=== PATIENT | female | born 1995 ===

== ENCOUNTER → 2021-12-28 08:03 | Outpatient (CLI) | payer OTHER, SELFPAY ==
--- NOTE | 2021-12-28 08:04 | DI.US.S_ITS ---
PROCEDURE: US OB LIMITED INDICATIONS: FOLLOW-UP OUT OF STATE ANATOMY SCAN OUTSIDE/PRIOR DATING DATA: Last menstrual period (LMP): Unknown. First dating scan (date and location): November 14, 2021. Estimated date of delivery (MABLE) from first dating scan: April 15, 2022. TECHNIQUE: Real-time scanning was performed of the fetus, with image documentation and biometric measurements. COMPARISON: Outside Facility, RG, US OB DETAILED ANATOMY, 11/14/2021, 9:40. FINDINGS: General: A single living intrauterine gestation is present. Presentation: Vertex. Placenta: Placental position is posterior , without previa. Amniotic fluid index: 13.5 cm, normal range is 5-24 cm. Single deepest vertical pocket is 4 cm. heart rate: 152 beats per minute. Maternal cervical canal: 3.1 cm long. Normal lower limit is 2.5 cm. biometrics: Biparietal diameter: 6 cm Head circumference: 23.2 cm Abdominal circumference: 20.1 cm Femur length: 4.7 cm Clinically estimated gestational age: 24 weeks, 4 days Composite gestational age from present scan: 25 weeks, 1 day Estimated weight and percentile: 774 g +/-115 g; 67 percent Other: Facial profile: Normal. Four-chamber /outflow tracts: Normal appearance Extremities: Normal appearance. IMPRESSION: Single intrauterine gestation as detailed above. We strive to produce accurate, complete, and clear reports of imaging services. To assist us in improving patient care, this report was composed using standard report templates and voice recognition software. Therefore, it may contain abnormal punctuation, insertions and/or omissions. Occasional wrong-word or sound-alike substitutions may occur. Though we review the report and make efforts to correct it, we do recommend that the report be read carefully in proper context to recognize any text inaccuracies. Dictated by: Deion Allen M.D. on 12/28/2021 at 8:55 Approved by: Deion Allen M.D. on 12/28/2021 at 8:58
== END ==
PROVIDERS: Referring Provider Family Medicine; Visit Provider Family Medicine
DX: Z36.2 Encounter for other antenatal screening follow-up (principal); Z3A.24 24 weeks gestation of pregnancy
CPT/HCPCS: 76815

== ENCOUNTER → 2022-01-19 14:46 | Outpatient (CLI) | payer OTHER, SELFPAY ==
[2022-01-19 17:26] LABS: Add Manual Diff / Slide Review NO; Basophils Absolute Auto 0 /uL (0-100); Basophils Percent Auto 0.2 % (0-2); Eosinophils Absolute Auto 300 /uL (0-450); Eosinophils Percent Auto 2.6 % (2-4); Hemoglobin 10.8 g/dL (12.0-16.0); Lymphocytes Absolute Auto 1000 /uL (1100-4500); Lymphocytes Percent Auto 9.7 % (25-40); Mean Corpuscular HGB Conc 33.8 % (30-36); Mean Corpuscular Hemoglobin 31.6 PG (26-34); Mean Corpuscular Volume 93.7 fL (80-100); Monocytes Absolute Auto 500 /uL (0-900); Monocytes Percent Auto 4.9 % (3-14); Neutrophils Absolute Auto 9000 /uL (1500-7000); Neutrophils Percent Auto 82.6 % (50-75); Platelet Count 265 X10^3/uL (150-400); Red Blood Cell Count 3.41 X10^6/uL (4.0-5.2); Red Cell Distribution Width 13.6 % (11.6-14.8); White Blood Cell Count 10.8 X10^3/uL (4.5-11.0)
[2022-01-19 17:50] LABS: GTT (PREG) 1 Hour PP 50gm Dose 153 mg/dL (76-139)
== END ==
PROVIDERS: Referring Provider Family Medicine; Visit Provider Family Medicine
DX: Z34.02 Encounter for supervision of normal first pregnancy, second trimester (principal); Z3A.27 27 weeks gestation of pregnancy
CPT/HCPCS: 36415; 82950; 85025

== ENCOUNTER → 2022-02-01 08:05 | Outpatient (CLI) | payer OTHER, SELFPAY ==
[2022-02-01 10:13] LABS: Glucose Fasting Gestational 84 mg/dL (76-95)
[2022-02-01 10:50] LABS: Glucose 1 Hour Gest 172 mg/dL (76-180)
[2022-02-01 11:54] LABS: Glucose Tol Interp,Gestational INTERPRETATION
[2022-02-01 12:23] LABS: Glucose 2 Hour Gest 156 mg/dL (76-155)
[2022-02-01 13:01] LABS: Glucose 3 Hour Gest 110 mg/dL (76-140)
== END ==
PROVIDERS: Referring Provider Family Medicine; Visit Provider Family Medicine
DX: Z34.90 Encounter for supervision of normal pregnancy, unspecified, unspecified trimester (principal)
CPT/HCPCS: 36415; 82951; 82952

== ENCOUNTER → 2022-03-23 15:08 | Outpatient (CLI) | payer OTHER, SELFPAY ==
[2022-03-24 15:30] LABS: Strep Grp B PCR NEG for Grp B Strep
== END ==
PROVIDERS: Visit Provider Family Medicine
DX: Z34.93 Encounter for supervision of normal pregnancy, unspecified, third trimester (principal); Z3A.36 36 weeks gestation of pregnancy
CPT/HCPCS: 87653

== ENCOUNTER 2022-03-28 00:31 | Observation (INO) | payer OTHER, SELFPAY ==
--- NOTE | 2022-03-28 02:25 | PM.OBTRLD ---
Visit Information Visit Information Date of evaluation: 03/28/22 Primary OB Provider: Imani Gerardo On-call OB Provider: Sangeeta Iverson Reason for Evaluation: Yes rule out labor Comments/Additional reasons for admission: 27YO @ [id number] presents for evaluation of vibrations in her vagina Q5 minutes. Vital Signs Vital Signs: BP 129/63, HR 71bpm, T 98.2F Temporal PFSH Medical History Anxiety Surgical History Chiari malformation Nasal polyp Family History Mother Diabetes mellitus Father Hypertension Other Chiari malformation Social History marital status: household members: spouse lives independently: Yes housing: house pets and animals: Yes (dog) education level: college occupational status: unemployed seatbelt use: always water heater temp set < 120 deg: Yes working smoke detector in home: Yes fire extinguisher in home: Yes (Unsure) carbon monox detector in home: Yes firearms in home: No do you feel safe at home: Yes Smoking Status: Never smoker second hand exposure: No alcohol intake: former substance use type: does not use during the past year weight has: remained stable well-balanced diet: daily or most days daily servings fruits/ve-4 caffeine: Yes Type(s) of exercise: walking and occasional exercise Review of Systems Review of Systems ROS: Yes All systems reviewed with the patient and are negative except as otherwise documented Exam Vital Signs (past 8 hours): see above Evaluation Evaluation Baseline heart rate: 125 Variability: Moderate (11-25) monitor accelerations: Present Monitor Decelerations: Absent Contraction Frequency (minutes): 6 Uterine Contraction Intensity: Mild Category of Tracing: Reactive Cervical dilation (cm): 3 Cervical effacement (%): 90 station: -1 Comments: Per RN, CE unchanged after 1 hour Diagnosis, Plan/Disposition Final Diagnosis (1) False labor after 37 completed weeks of gestation: Status: Acute Plan/Disposition Plan: Discharge to home with routine labor precautions. RN provided additional early labor education. Follow-up with as previously scheduled. OB Disposition: home
== END 2022-03-28 02:36 | disposition home or self-care (01) ==
LOC: LABOR 00:33
PROVIDERS: Admitting Provider Nurse Practitioner Obstetrics & Gynecology; PCP Physician Assistant; Referring Provider Nurse Practitioner Obstetrics & Gynecology; Visit Provider Nurse Practitioner Obstetrics & Gynecology
DX: O47.1 False labor at or after 37 completed weeks of gestation (principal); Z3A.37 37 weeks gestation of pregnancy
CPT/HCPCS: 59025; G0378; G0379

== ENCOUNTER 2022-03-28 13:15 | Outpatient (CLI) | payer OTHER, SELFPAY ==
--- NOTE | 2022-03-28 14:23 | PM.OBTRLD ---
Visit Information Visit Information Date of evaluation: 03/28/22 Primary OB Provider: Imani Gerardo Reason for Evaluation: Yes rule out labor Comments/Additional reasons for admission: 27yo at 37w0d here for contractions. Pt reports having them increase in intensity throughout the day. No bleeding or LOF. She is feeling her baby move regularly. [facility] Medical History Anxiety Surgical History Chiari malformation Nasal polyp Family History Mother Diabetes mellitus Father Hypertension Other Chiari malformation Social History marital status: household members: spouse lives independently: Yes housing: house pets and animals: Yes (dog) education level: college occupational status: unemployed seatbelt use: always water heater temp set < 120 deg: Yes working smoke detector in home: Yes fire extinguisher in home: Yes (Unsure) carbon monox detector in home: Yes firearms in home: No do you feel safe at home: Yes Smoking Status: Never smoker second hand exposure: No alcohol intake: former substance use type: does not use during the past year weight has: remained stable well-balanced diet: daily or most days daily servings fruits/ve-4 caffeine: Yes Type(s) of exercise: walking and occasional exercise Evaluation Evaluation Baseline heart rate: 130 Variability: Moderate (11-25) monitor accelerations: Present Monitor Decelerations: Absent Contraction Frequency (minutes): 7 Uterine Contraction Intensity: Mild Cervical dilation (cm): 3 Cervical effacement (%): 80 station: -1 Diagnosis, Plan/Disposition Final Diagnosis (1) Prolonged latent phase of labor: Status: Acute Plan/Disposition Plan: Pt 37w0d here with contractions. No cervical change from last night. FHT reassuring. Pt without any sleep overnight. Morphine/Benadryl given to allow for rest. Stable for d/c home. OB Disposition: home
== END 2022-03-28 14:40 | disposition home or self-care (01) ==
LOC: LABOR 13:41 → OB 03-29 13:43
PROVIDERS: Referring Provider Family Medicine; Visit Provider Family Medicine
DX: O63.0 Prolonged first stage (of labor) (principal); Z3A.37 37 weeks gestation of pregnancy; O47.1 False labor at or after 37 completed weeks of gestation
CPT/HCPCS: 59025; G0378; G0379

== ENCOUNTER 2022-04-08 06:29 | Inpatient (IN) | payer OTHER, SELFPAY ==
[2022-04-08 07:31] LABS: Add Manual Diff / Slide Review NO; Basophils Absolute Auto 100 /uL (0-100); Basophils Percent Auto 0.8 % (0-2); Eosinophils Absolute Auto 100 /uL (0-450); Eosinophils Percent Auto 1.2 % (2-4); Hematocrit 38.1 % (36-46); Hemoglobin 13.1 g/dL (12.0-16.0); Lymphocytes Absolute Auto 1200 /uL (1100-4500); Mean Corpuscular HGB Conc 34.5 % (30-36); Mean Corpuscular Hemoglobin 31.9 PG (26-34); Mean Corpuscular Volume 92.6 fL (80-100); Monocytes Absolute Auto 600 /uL (0-900); Monocytes Percent Auto 6.2 % (3-14); Neutrophils Absolute Auto 8300 /uL (1500-7000); Neutrophils Percent Auto 79.8 % (50-75); Platelet Count 224 X10^3/uL (150-400); Red Blood Cell Count 4.11 X10^6/uL (4.0-5.2); Red Cell Distribution Width 14.6 % (11.6-14.8); White Blood Cell Count 10.4 X10^3/uL (4.5-11.0)
--- NOTE | 2022-04-08 07:34 | P.HPOB_ITS ---
OB HPI Date/Time Date of admission: 04/08/22 Date Patient Seen: 04/08/22 Time Patient Seen: 07:30 History of Present Condition Chief complaint: Labor MABLE Calculator Estimated Delivery Date Method Current WG Current Estimate 04/18/22 LMP (Certain) 38w 4d : 2 Para: 0 Narrative: 27-year-old at 38 weeks and 4 days gestation who presents in active labor. Contractions began at 5:00 a.m. this morning. Patient denies leaking or bleeding and reports good movement. She did have some very light bleeding yesterday along with contractions. She has a history of Chiari malformation requiring surgical correction as a child. No concerns from Neurosurgery regarding laboring. 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 care: good care, initiated at week # (8), number of visits (13) and pounds weight gain (34) Dating criteria OB: LMP confirmed by 1st trimester US Ultrasounds: normal mid trimester US Obstetrical complications: none Medical complications OB: none Preadmission Labs Last OB Lab Results: Blood Type Pending 04/08/22 07:20 04/08/22 Antibody Screen Pending 04/08/22 07:20 04/08/22 Hematocrit 38.1 % (36-46) 04/08/22 07:20 04/08/22 Hemoglobin 13.1 g/dL (12.0-16.0) 04/08/22 07:20 04/08/22 Glucose 1 Hour 153 mg/dL (76-139) H 01/19/22 16:39 01/19/22 Group B Streptococcus (PCR) Neg for grp b strep 03/23/22 15:08 03/23/22 -: Chlamydia screen: negative and Gonorrhea screen: negative Genetic Screens: Cell-free DNA: Normal, Alpha-fetoprotein: Normal and Sequential screen: Normal Prior (ies) Past Pregnancies Del. Date GA/Weeks Labor Lgth Wt Sex Route Outcome Anesthesia Place Delv Breastfeed Preg Comp Name 02/13/12 elective Delivery Date: 02/13/12 Last Updated by: Trinidad Sprague R.N. Medical Evaluation Evaluation Baseline heart rate: 120 Variability: Moderate (11-25) monitor accelerations: Present Monitor Decelerations: Absent Contraction Frequency (minutes): 4 Status: Category l Dilation (cm): 8 Effacement (%): 95 station: 0 PFSH Medical History Anxiety Surgical History Chiari malformation Nasal polyp Family History Mother Diabetes mellitus Father Hypertension Other Chiari malformation Social History marital status: household members: spouse lives independently: Yes housing: house pets and animals: Yes (dog) education level: college occupational status: unemployed seatbelt use: always water heater temp set < 120 deg: Yes working smoke detector in home: Yes fire extinguisher in home: Yes (Unsure) carbon monox detector in home: Yes firearms in home: No do you feel safe at home: Yes Smoking Status: Never smoker second hand exposure: No alcohol intake: former substance use type: does not use during the past year weight has: remained stable well-balanced diet: daily or most days daily servings fruits/ve-4 caffeine: Yes Type(s) of exercise: walking and occasional exercise Meds Home Medications and Allergies Home Medications Medication Instructions Recorded Confirmed Type ferrous sulfate 325 mg (65 mg 325 mg PO DAILY 12/18/21 04/06/22 History iron) tablet fluticasone propionate 50 1 spray INTRANASAL DAILY 12/18/21 04/06/22 History mcg/actuation nasal spray,suspension prenat.vits,joseluis,[id number] 1 tab PO DAILY 12/18/21 04/06/22 History valacyclovir 500 mg tablet 500 mg PO BID #60 tab 03/23/22 04/06/22 Rx Allergies Allergy/AdvReac Type Severity Reaction Status Date / Time No Known Drug Allergies Allergy Unverified 04/06/22 14:36 Review of Systems Review of Systems ROS: Yes All systems reviewed with the patient and are negative except as otherwise documented OB Exam Narrative Exam Narrative: Temperature 98.6? blood pressure 140/87 heart rate 69 respirations 18 HENMT Head: normal to inspection Mouth: oral mucosae normal Eyes General: appearance normal, both eyes and all related structures Resp Effort & Inspection: normal respiratory effort Auscultation: clear to auscultation bilaterally Cardio Rate: regular rate Rhythm: regular rhythm Extremities Lower extremity: Yes normal to inspection Presentation: vertex Estimated Weight (lbs): 7 Objective Labs Result Diagrams: 04/08/22 07:20 Labs: Laboratory Results - last 24 hr 04/08/22 07:20 WBC 10.4 RBC 4.11 Hgb 13.1 Hct 38.1 MCV 92.6 MCH 31.9 MCHC 34.5 RDW 14.6 Plt Count 224 Neut % (Auto) 79.8 H Lymph % (Auto) 12.0 L [place] % (Auto) 6.2 Eos % (Auto) 1.2 L Baso % (Auto) 0.8 Neut # (Auto) 8300 H Lymph # (Auto) 1200 [place] # (Auto) 600 Eos # (Auto) 100 Baso # (Auto) 100 Assessment and Plan Assessment and Plan Assessment and Plan narrative: 27-year-old at 38 weeks and 4 days gestation in active labor. complicated by history of Chiari malformation status post correction as a child as well as history of HSV on valacyclovir since 36 weeks. Per Neurosurgery, no contraindications to labor or Epidural. GBS negative. Admit for labor Patient is requesting an epidural now Anticipate
[2022-04-08 07:47] LABS: COVID19 -Nasal RAPID Negative (Negative)
[2022-04-08] MEDS: LACTATED RINGERS 1,000 ML 1000 ML IV (08:00)
--- NOTE | 2022-04-08 08:59 | PM.AN.REGBLK ---
Regional Block Pre-procedure Procedure: Continuous Lumbar Epidural for L&D Attending OB provider: Imani Gerardo PMH/ROS narrative: G1 term uncomplicated gestation in active labor, intact, desires epidural. PSH/Anesthesia history narrative: Resection of AC malformation ten years ago. Becuase of this, she declines offer of CSE now. Exam narrative: Scoliosis of lumbar back. ASA Class: II Labs: Hct 38.1 % (36-46) 04/08/22 07:20 Plt Count 224 X10^3/uL (150-400) 04/08/22 07:20 Medications: Current Medications Generic Name Dose Route Start Last Admin Trade Name Freq PRN Reason Stop Dose Admin Carboprost Tromethamine 250 mcg 04/08/22 07:01 Carboprost 250 Mcg/Ml Ampul IM Q90M PRN Bleeding Diphenhydramine HCl 25 mg 04/08/22 07:57 Diphenhydramine 50 Mg/Ml Vial IV Q10M PRN Pruritis Lactated Ringer's 1,000 mls @ 100 mls/hr 04/08/22 07:15 Lactated Ringers IV CONT LORELEI Oxytocin/Lactated Ringer's 30 unit in 500 mls @ 200 mls/hr 04/08/22 07:01 Oxytocin Premix IV CONT PRN Bleeding Protocol Tranexamic Acid 1,000 mg/ 100 mls @ 200 mls/hr 04/08/22 07:01 Sodium Chloride IV NOW PRN Bleeding FENT 2MCG/ML BUPIV 0.125% EPI 200 mcg in 100 mls @ 6 mls/hr 04/08/22 08:00 Fentanyl/Bupiv/Ns 2mcg/Ml - 0.125% EPIDURAL CONT LORELEI Methylergonovine Maleate 0.2 mg 04/08/22 07:01 Methylergonovine 0.2 Mg Tablet PO Q6HR PRN Heavy Bleeding Methylergonovine Maleate 0.2 mg 04/08/22 07:01 Methylergonovine 0.2 Mg/Ml Vial IM NOW PRN Bleeding Misoprostol 800 mcg 04/08/22 07:01 Misoprostol 200 Mcg Tablet HI NOW PRN Bleeding Misoprostol 1,000 mcg 04/08/22 07:01 Misoprostol 200 Mcg Tablet HI NOW PRN Bleeding Misoprostol 400 mcg 04/08/22 07:01 Misoprostol 200 Mcg Tablet SL NOW PRN Bleeding Nalbuphine HCl 2.5 mg 04/08/22 07:57 Nalbuphine 20 Mg/Ml Ampul IV Q10M PRN Pruritis Oxytocin 10 unit 04/08/22 07:01 Oxytocin 10 Unit/Ml Vial IM NOW PRN Bleeding Allergies: Allergies Allergy/AdvReac Type Severity Reaction Status Date / Time No Known Drug Allergies Allergy Unverified 04/06/22 14:36 Procedure Insertion date: 04/08/22 Insertion time: 08:23 Prep/Local: betadine x3 and 1% lidocaine Interspace: L 3-4 midline Patient position: sitting Needle: 17 gauge Tuohy Loss of resistance with: saline MARYSOL at (cm): 5 Catheter placed at SKIN (cm): 11 Insertion: No CSF, No Blood, No Paresthesia with insertion, No Paresthesia with injection and No Test dose reaction Initial Medications TEST DOSE time: : BOLUS DOSE time: 08:36 BOLUS DOSE (mL): 2 BOLUS DOSE med: other (Fentanyl 100 mcg) Infusion INFUSION: 0.125% bupivacaine and with fentanyl 2 mcg/mL Initial rate (mL/hr): 8 Subsequent interventions: Fentanyl 100 mcg per epidural at 8:36 Block L>R, so at 10:23, epidural cath pulled back to 10 cm and bolus of 5 ml 1.5% lido with epi plus 100 mcg fentanyl given to good effect Comfortable delivery at 16:18 Post-procedure Anesthesia time START: 08:07 Anesthesia time END: 16:18 Post-procedure Anesthesia Assessment: Yes CV function: HR/BP stable, Yes Resp function: RR/sat/airway adequate, Yes Post-op hydration adequate, Yes Pain control adequate, Yes Nausea & vomiting absent, Yes Temperature > 36 C and Yes Mental status appropriate
--- NOTE | 2022-04-08 09:55 | P.PNOB_ITS ---
Date/Time Date Patient Seen: 04/08/22 Time Patient Seen: 09:00 Pain Control Pain control: epidural Pelvic Exam Dilation (cm): 8 Effacement (%): 100 station: 0 Amniotic membrane status: Ruptured (AROM clear fluid) Contractions Monitor mode: External Contraction frequency (min): 4 Status status: Category l Heart Rate Baseline: 120 Monitor Accelerations: Present Monitor Decelerations: Absent Monitor Variability: Moderate Assessment and Plan Assessment: active labor Plan: continuous present management Comments: 27-year-old at 38 weeks and 4 days gestation in active labor, now com fortable with epidural. She has not had cervical change since admission so artificial rupture membranes performed for augmentation with clear fluid. Will begin peanut ball to encourage descent of the head.
[2022-04-08] MEDS: LACTATED RINGERS 1,000 ML 100 ML IV (10:23)
--- NOTE | 2022-04-08 16:31 | PM.OBPRVD ---
Labor & Delivery Delivery date: 04/08/22 Intrapartal Events: Prolonged 2nd Stage > 2.5 hours Cervical ripening method: none Induction method: none Delivery augmentation: rupture of membranes Delivery monitor: external FHT and external uterine Route of delivery: Episiotomy description: None L&D Laceration Description: None Quantitative Blood Loss: 50 Anesthesia Type: Epidural Complications: None Narrative: PROCEDURE: at 38w4d presented in active labor and was admitted to Labor and Delivery. The patient progressed through the 1st stage over 8 hours. AROM was performed with production of clear fluid. Pain was controlled with an epidural. The patient progressed through the 2nd stage over 3 hours and delivered a viable female infant with APGARs 8/9 at 16:18 via without complications. The perineum and vagina were inspected with no lacerations. PREPROCEDURE DIAGNOSIS: Intrauterine at 38w4d GBS negative RH positive POSTPROCEDURE DIAGNOSIS: Intrauterine at 38w4d, delivered Same as preprocedure Baby 1: gender: Female Presentation: vertex Position: Left Occiput Anterior Placenta delivery description: Spontaneous Cord Vessel Description: 3 Vessels score (1 min): 8 score (5 min): 9 weight: 7 lb 5.286 oz Plan for aftercare: Routine care
[2022-04-08] MEDS: IBUPROFEN 600 MG TABLET PO (19:37)
[2022-04-09] MEDS: IBUPROFEN 600 MG TABLET PO (05:37)
--- NOTE | 2022-04-09 09:26 | P.DS_ITS ---
Discharge Providers Provider Date of admission: 04/08/22 06:29 Discharge Date: 04/09/22 Primary care physician: Vipin Claire PA-C Consults: 04/09/22 16:30 Consult to Senior Mechanical Project Engineer Routine Comment: Discharge provider: Mona Mueller DO Summary Hospital Course Date Patient Seen: 04/09/22 Time Patient Seen: 09:27 Diagnoses: Spontaneous vaginal delivery 38 weeks of Hospital Course: Patient is a 27-year-old G2 now P1 after uncomplicated spontaneous vaginal delivery at 38 weeks and 4 days gestation. She presented in active labor and received an epidural. After 3 hours of pushing she delivered a vigorous female infant. There were no lacerations. course has been uncomplicated. She is ambulating, voiding and passing flatus. Vaginal bleeding is light. Pain controlled with ibuprofen. is going well without concerns in the . Advised patient to call for fever, severe pain or bleeding through more than a pad an hour. Follow-up in clinic in 6 weeks. Peripartum Data Delivery Method: Natural Vaginal Laceration Description: None complications: none [place] 1: Gender: Female Disposition of : home Status at Discharge Cognitive/behavioral status at discharge: at baseline, oriented Functional status at discharge: independent ambulation Overall status at discharge: patient is progressing back to baseline Time Spent with Patient Time attestation: Total time spent providing and/or coordinating discharge services: Time spent: Less than 30 minutes Objective Labs Result Diagrams: 04/08/22 07:20 Exam Vital Signs (past 8 hours): Temperature 98.2? blood pressure 130/70 heart rate 70 respirations 16 Narrative Exam Narrative: General: Awake and alert, no acute distress. HEENT: NCAT, EOMI, moist oral mucosa CV: Regular rate and rhythm, no murmurs, rubs or gallops Lungs: CTAB, no wheezes, rales, or rhonchi Abdomen: Soft, nontender; bowel tones active; uterus firm 1 cm below umbilicus Extremities: Warm, no edema Discharge Plan Discharge Plan Patient Disposition: Home Discharge orders & Medications Prescriptions: New docusate sodium 100 mg Capsule 100 mg PO DAILY Qty: 30 0RF ibuprofen 600 mg Tablet 600 mg PO Q6HR PRN (Reason: Pain, Mild (1-3)) Qty: 30 0RF Continued valacyclovir 500 mg tablet 500 mg PO BID Qty: 60 1RF prenat.vits,joseluis,[id number] Tablet 1 tab PO DAILY 0RF ferrous sulfate 325 mg (65 mg iron) tablet 325 mg PO DAILY 0RF fluticasone propionate 50 mcg/actuation spray,suspension 1 spray intranasal DAILY 0RF Rx Instructions: administer into each nostril Follow up/Referrals: Vipin Claire PA-C [Primary Care Provider] - Imani Gerardo MD [Physician] - 6 Weeks Diet/Activity/Treatments Diet: Diet as Tolerated Skin/Wound/Dressing Care Report to your healthcare provider any signs of infection, such as:: chills, fever, night sweats, increased pain, unusual drainage and unusual redness Visit Report/Discharge Packet Visit Report Forms: Patient Portal/API Discharge Data Primary Care Provider: Vipin Claire
== END 2022-04-09 13:30 | disposition home or self-care (01) | DRG 807 ==
PROVIDERS: Family Medicine; Admitting Provider Family Medicine; PCP Physician Assistant; Referring Provider Family Medicine; Visit Provider Family Medicine
DX: O98.52 Other viral diseases complicating childbirth (principal); Z37.0 Single live birth; B00.9 Herpesviral infection, unspecified; O63.1 Prolonged second stage (of labor); Z3A.38 38 weeks gestation of pregnancy; Z20.822 Contact with and (suspected) exposure to COVID-19
CPT/HCPCS: 01967; 36415; 59050; 59410; 85025; 86850; 86900; 86901; 87635; C9803; G0379; J3010

== ENCOUNTER → 2022-11-13 10:59 | Outpatient (CLI) | payer OTHER, SELFPAY ==
[2022-11-13 11:53] LABS: COVID19 -Nasal RAPID POSITIVE (Negative)
== END ==
PROVIDERS: PCP Physician Assistant; Visit Provider Surgery
DX: U07.1 COVID-19 (principal)
CPT/HCPCS: 87635; C9803

== ENCOUNTER 2023-12-01 19:43 | Emergency (ER) | payer OTHER, SELFPAY ==
[2023-12-01 19:46] VITALS: BP 136/73; PULSE 65; RESP 16; TEMP 37.4; O2SAT 99; BMI 24.9
--- NOTE | 2023-12-01 19:55 | ED_ITS ---
HPI - Dizziness General Chief Complaint: Weakness Stated Complaint: Dizzy, Feeling ill, chills, sweats Time Seen by Provider: 12/01/23 19:48 Source: patient Mode of arrival: Ambulatory Limitations: no limitations History of Present Illness HPI Narrative: 28-year-old female proximally your with history of Chiari malformation with surgery approximately she 15 years ago. Patient states her last check was about 2 years ago. She has not had any issues revisions. Patient states she has felt off kind of difficulty with focus, insomnia, she has felt a little dizzy but she did describes no headaches, denies fevers but has been sweaty, no nasal congestion or cold cough symptoms. Denies chest pain or pressure, no shortness of breath. She denies any nausea or vomiting. She states she has had a decreased appetite. States no diarrhea or constipation. No abdominal pain. Denies any dysuria, urgency or frequency. No new numbness, tingling weakness no difficulty with gait or balance. She did notice that she had some bruising on the backs of her thighs which is atypical. She sits on a chair at home for work and seemed to have developed some bruising secondary to that but states that is weird. She states the bruising has gone away. She states no daily medications, no current supplements. She states she has had polyps removed from her sinuses as well as her Chiari malformation surgery. Did not require any revisions at any point she did not have any complications. No tobacco, rare alcohol, no recreational drugs. She is accompanied by her . She notes that when friend told her she might have parasites, she sometimes he would sushi but only here in the [place] words flash frozen, no other meats, she has not had any long distance travel or other high-risk factors. Related Data Home Medications Medication Instructions Recorded Confirmed ferrous sulfate 325 mg (65 mg 325 mg PO DAILY 12/18/21 11/09/22 iron) tablet fluticasone propionate 50 1 spray intranasal DAILY 12/18/21 11/09/22 mcg/actuation nasal spray,suspension prenat.vits,joseluis,[id number] 1 tab PO DAILY 12/18/21 11/09/22 Previous Rx's Medication Instructions Recorded valacyclovir 500 mg tablet 500 mg PO BID #60 tabs 03/23/22 docusate sodium 100 mg capsule 100 mg PO DAILY #30 caps 04/09/22 ibuprofen 600 mg tablet 600 mg PO Q6HR PRN Pain, Mild 04/09/22 (1-3) #30 tabs Allergies Allergy/AdvReac Type Severity Reaction Status Date / Time No Known Drug Allergies Allergy Unverified 05/17/22 15:09 Review of Systems Review of Systems ROS Unobtainable: All systems reviewed & are unremarkable except as noted in HPI and below Patient History Medical History COVID-19 virus infection (11/13/22) Anxiety Surgical History Nasal polyp Chiari malformation Family History Mother Diabetes mellitus Father Hypertension Other Chiari malformation Social History marital status: household members: spouse and children lives independently: Yes housing: house pets and animals: Yes (dog) education level: college occupational status: unemployed seatbelt use: always water heater temp set < 120 deg: Yes working smoke detector in home: Yes fire extinguisher in home: Yes (Unsure) carbon monox detector in home: Yes firearms in home: No do you feel safe at home: Yes Smoking Status: Never smoker second hand exposure: No alcohol intake: former substance use type: does not use during the past year weight has: remained stable well-balanced diet: daily or most days daily servings fruits/ve-4 caffeine: Yes Type(s) of exercise: walking and occasional exercise Smoking Status: Never smoker alcohol intake frequency: holidays/special occasions only Substance Use Type: does not use Exam Narrative Exam Narrative: GEN: well nourished, well appearing female, alert and oriented x 3, patient appears to be in mild distress. HEENT: Atraumatic, pupils are equal round reactive to light, extraocular movements are intact, nares are clear, TMs are clear with no fluid, there is no conjunctival pallor. Throat is clear without any exudates, erythema, tonsillar enlargement or uvular deviation HEART: Regular rate and rhythm without murmur, clicks, rubs. Pulses are equal in upper and lower extremities LUNGS:Lungs clear to auscultation, no wheezes, rales, crackles, chest moves symmetrically ABD:bowel sounds normal, soft, non-tender, no guarding, rebound, rigidity, no masses noted, no hepatosplenomegaly :No CVA tenderness MSCL: Non-tender, no muscle atrophy, muscles strength 5/5 upper and lower extremities, full range of motion, normal gait NEURO:CN 2-12 intact, sensation normal, reflexes 2/4 upper and lower extremities. finger nose finger test normal, heel coto test normal, normal speech. SKIN: No rash, erythema or ecchymosis. Initial Vital Signs Initial Vital Signs: Vital Signs Temperature 99.3 F 12/01/23 19:46 Pulse Rate 65 12/01/23 19:46 Respiratory Rate 16 12/01/23 19:46 Blood Pressure 136/73 12/01/23 19:46 Pulse Oximetry 99 12/01/23 19:46 Oxygen Delivery Method Room Air 12/01/23 19:46 Course Orders Ordered: ED Orders 12/01/23 20:20 Covid-19 + FLU A/B + RSV - PCR Stat 12/01/23 20:21 Urine Culture Stat Urine Microscopic Stat 12/01/23 20:28 CBC Auto Diff [Complete Blood Count AUTO DIFF] Stat CMP [Comprehensive Metabolic Panel] Stat Lipase Stat 12/01/23 21:23 Arterial Blood Gas Stat Vital Signs Vital signs: Vital Signs - 8 hr 12/01/23 19:46 12/01/23 21:17 Temperature 99.3 F 98.9 F Pulse Rate 65 61 Respiratory Rate 16 16 Blood Pressure 136/73 125/67 Pulse Oximetry 99 100 Oxygen Delivery Method Room Air Room Air MDM - Dizziness Lab Data 12/01/23 20:28 12/01/23 20:28 Labs: Lab Results 12/01/23 12/01/23 12/01/23 Range/Units 20:20 20:21 20:28 WBC 11.8 H (4.5-11.0) X10^3/uL RBC 4.02 (4.0-5.2) X10^6/uL Hgb 12.5 (12.0-16.0) g/dL Hct 37.4 (36-46) % MCV 93.1 (80-100) fL MCH 31.2 (26-34) PG MCHC 33.5 (30-36) % RDW 12.5 (11.6-14.8) % Plt Count 277 (150-400) X10^3/uL Neut % (Auto) 64.7 (50-75) % Lymph % (Auto) 24.7 L (25-40) % [place] % (Auto) 5.8 (3-14) % Eos % (Auto) 4.3 H (2-4) % Baso % (Auto) 0.5 (0-2) % Neut # (Auto) 7600 H (3458-7014) /uL Lymph # (Auto) 2900 (7077-6384) /uL [place] # (Auto) 700 (0-900) /uL Eos # (Auto) 500 H (0-450) /uL Baso # (Auto) 100 (0-100) /uL ABG Sample Site ABG pH (7.35-7.45) ABG pCO2 (35-45) mmHg ABG pO2 (80-100) mmHg ABG HCO3 (23-27) mmol/L ABG Total CO2 (23-27) mmol/L ABG O2 Saturation (95-100) % ABG Base Excess (-2-3) mmol/L FiO2 Sodium 137 (137-145) mmol/L Potassium 4.0 (3.4-5.1) mmol/L Chloride 101 (98-107) mmol/L Carbon Dioxide 25 (22-32) mmol/L BUN 15 (7-17) mg/dL Creatinine 0.72 (0.52-1.04) mg/dL Estimated GFR > 60 (>60) mL/min BUN/Creatinine Ratio 20.8 (6-22) Glucose 91 (70-100) mg/dL Calcium 9.9 (8.4-10.2) mg/dL Total Bilirubin 0.4 (0.2-1.3) mg/dL AST 26 (14-36) IU/L ALT 15 (<35) IU/L Alkaline Phosphatase 75 (38-126) U/L Total Protein 8.2 (6.3-8.2) g/dL Albumin 4.4 (3.5-5.0) g/dL Globulin 3.8 (1.7-4.1) g/dL Albumin/Globulin Ratio 1.2 (1.0-2.8) Lipase 104 (23-300) U/L Urine RBC 5-10/hpf H (0-5/HPF) Urine WBC 1-5/hpf (0-5/HPF) Ur Squamous Epith Cells 5-10 /hpf H (0-5/HPF) Urine Bacteria Moderate (10-30) H (None) Hyaline Casts 0-1/lpf (None) Urine Mucus 2+ H (Negative) Ur Culture Indicated? Cult not indicated Vol Urine Centrifuged 10ml (spun) SARS-CoV-2 (PCR) Negative (Negative) Influenza A (RT-PCR) Flu a negative (NEGATIVE) Influenza B (RT-PCR) Flu b negative (NEGATIVE) RSV (PCR) Negative (Negative) 12/01/23 Range/Units 21:23 WBC (4.5-11.0) X10^3/uL RBC (4.0-5.2) X10^6/uL Hgb (12.0-16.0) g/dL Hct (36-46) % MCV (80-100) fL MCH (26-34) PG MCHC (30-36) % RDW (11.6-14.8) % Plt Count (150-400) X10^3/uL Neut % (Auto) (50-75) % Lymph % (Auto) (25-40) % [place] % (Auto) (3-14) % Eos % (Auto) (2-4) % Baso % (Auto) (0-2) % Neut # (Auto) (4939-2872) /uL Lymph # (Auto) (6581-3209) /uL [place] # (Auto) (0-900) /uL Eos # (Auto) (0-450) /uL Baso # (Auto) (0-100) /uL ABG Sample Site Right radial ABG pH 7.47 H (7.35-7.45) ABG pCO2 42.3 (35-45) mmHg ABG pO2 76 L (80-100) mmHg ABG HCO3 31 H (23-27) mmol/L ABG Total CO2 32 H (23-27) mmol/L ABG O2 Saturation 96 (95-100) % ABG Base Excess 7.0 H (-2-3) mmol/L FiO2 50 Sodium (137-145) mmol/L Potassium (3.4-5.1) mmol/L Chloride (98-107) mmol/L Carbon Dioxide (22-32) mmol/L BUN (7-17) mg/dL Creatinine (0.52-1.04) mg/dL Estimated GFR (>60) mL/min BUN/Creatinine Ratio (6-22) Glucose (70-100) mg/dL Calcium (8.4-10.2) mg/dL Total Bilirubin (0.2-1.3) mg/dL AST (14-36) IU/L ALT (<35) IU/L Alkaline Phosphatase (38-126) U/L Total Protein (6.3-8.2) g/dL Albumin (3.5-5.0) g/dL Globulin (1.7-4.1) g/dL Albumin/Globulin Ratio (1.0-2.8) Lipase (23-300) U/L Urine RBC (0-5/HPF) Urine WBC (0-5/HPF) Ur Squamous Epith Cells (0-5/HPF) Urine Bacteria (None) Hyaline Casts (None) Urine Mucus (Negative) Ur Culture Indicated? Vol Urine Centrifuged SARS-CoV-2 (PCR) (Negative) Influenza A (RT-PCR) (NEGATIVE) Influenza B (RT-PCR) (NEGATIVE) RSV (PCR) (Negative) Point of Care Testing Test Results Negative Urine Dip Bedside Urine Glucose Negative Bedside Urine Bilirubin - Negative Bedside Urine Ketone - Negative Urine Specific [place] 1.030 Bedside Urine Occult Blood +++ Bedside Urine pH 6.0 Bedside Urine Protein +/- 15 Bedside Urine Urobilinogen - Negative Bedside Urine Nitrite - Negative Bedside Urine Leukocytes - Negative Esterase MDM Narrative Medical decision making narrative: 28-year-old female with vague constellation of symptoms could have had recent upper respiratory type infection, discussed and she is agreeable to COVID/influenza/RSV swab. She does note some abnormal bruising so low obtain labs including CBC, CMP lipase. Urine sample on . Patient has had history of Chiari malformation and had surgery approximately 15 years ago. She states she has had no complications since. We did discuss head CT although her neurologic exam is normal and while she has had some dizziness she does not have a lot a highly suspicious symptoms. After discussion patient defers head CT at this time. Last evaluation was 2 years ago. Labs count 11.8 normal hemoglobin and platelets. Chemistries negative normal renal function, normal LFTs. Urine negative for . +for occult blood, negative for nitrates and leuks. 5-10 RBCs, 1-5 WBCs 5-10 squamous, moderate bacteria, 2+ mucus. Urine culture ordered. COVID/influenza/RSV is negative. Patient had asked about being checked for parasites. My suspicion is quite low, she did not give a stool sample here but discussed she can follow up with primary care and be tested as needed. Discharge Plan Departure Patient Disposition: Home Clinical Impression: Insomnia Activity Restrictions/Additional Instructions: Please follow up with your physician for recheck if your symptoms are persisting. Your urine has been sent for culture this takes approximately 48-72 hours and if positive you would be contacted to start antibiotics. Please return for severe headaches, sudden vision changes, persistent vomiting, new numbness, tingling or weakness, new loss of bowel or bladder control difficulty with gait, new chest pain or shortness of breath, persistent vomiting, black or bloody stools or other new or concerning changes. Prescriptions: No Action valacyclovir 500 mg tablet 500 mg PO BID Qty: 60 1RF prenat.vits,joseluis,[id number] Tablet 1 tab PO DAILY ferrous sulfate 325 mg (65 mg iron) tablet 325 mg PO DAILY fluticasone propionate 50 mcg/actuation spray,suspension 1 spray intranasal DAILY Rx Instructions: administer into each nostril docusate sodium 100 mg Capsule 100 mg PO DAILY Qty: 30 0RF ibuprofen 600 mg Tablet 600 mg PO Q6HR PRN (Reason: Pain, Mild (1-3)) Qty: 30 0RF Referrals: Imani Gerardo MD [Primary Care Provider] - Stand Alone Forms: Patient Portal/API
[2023-12-01 20:31] LABS: Add Manual Diff / Slide Review NO; Basophils Absolute Auto 100 /uL (0-100); Basophils Percent Auto 0.5 % (0-2); Eosinophils Absolute Auto 500 /uL (0-450); Eosinophils Percent Auto 4.3 % (2-4); Hematocrit 37.4 % (36-46); Hemoglobin 12.5 g/dL (12.0-16.0); Lymphocytes Absolute Auto 2900 /uL (1100-4500); Lymphocytes Percent Auto 24.7 % (25-40); Mean Corpuscular HGB Conc 33.5 % (30-36); Mean Corpuscular Hemoglobin 31.2 PG (26-34); Mean Corpuscular Volume 93.1 fL (80-100); Monocytes Absolute Auto 700 /uL (0-900); Monocytes Percent Auto 5.8 % (3-14); Neutrophils Absolute Auto 7600 /uL (1500-7000); Neutrophils Percent Auto 64.7 % (50-75); Platelet Count 277 X10^3/uL (150-400); Red Blood Cell Count 4.02 X10^6/uL (4.0-5.2); Red Cell Distribution Width 12.5 % (11.6-14.8); White Blood Cell Count 11.8 X10^3/uL (4.5-11.0)
[2023-12-01 20:57] LABS: Alanine Aminotransferase 15 IU/L (<35); Albumin 4.4 g/dL (3.5-5.0); Albumin Globulin Ratio 1.2 (1.0-2.8); Alkaline Phosphatase 75 U/L (38-126); Aspartate Aminotransferase 26 IU/L (14-36); BUN Creatinine Ratio 20.8 (6-22); Bilirubin Total 0.4 mg/dL (0.2-1.3); Blood Urea Nitrogen 15 mg/dL (7-17); Calcium 9.9 mg/dL (8.4-10.2); Carbon Dioxide 25 mmol/L (22-32); Chloride 101 mmol/L (98-107); Estimated Glomerular Filt Rate > 60 mL/min (>60); Globulin 3.8 g/dL (1.7-4.1); Glucose 91 mg/dL (70-100); HEMOLYSIS < 15 (0-50); Lipase 104 U/L (23-300); Sodium 137 mmol/L (137-145); Total Protein 8.2 g/dL (6.3-8.2)
[2023-12-01 21:03] LABS: Influenza A - CEPHEID Flu A NEGATIVE (NEGATIVE); Influenza B - CEPHEID Flu B NEGATIVE (NEGATIVE); Respiratory Syncytial Virus Negative (Negative)
[2023-12-01 21:07] LABS: Urine Volume 10mL (spun)
[2023-12-01 21:12] LABS: Bacteria Urine Moderate (10-30); Hyaline Casts Urine 0-1/LPF; Mucus Urine 2+ (Negative); RBC Urine 5-10/HPF (0-5/HPF); Squamous Epithelial Cell Urine 5-10 /HPF (0-5/HPF); WBC Urine 1-5/HPF (0-5/HPF)
[2023-12-01 21:13] LABS: Culture Indicated Urine Cult Not Indicated
[2023-12-01 21:14] LABS: COVID-19 CEPHEID 4-PLEX PCR Negative (Negative)
[2023-12-01 21:17] VITALS: BP 125/67; PULSE 61; RESP 16; TEMP 37.2; O2SAT 100
== END 2023-12-01 21:43 | disposition home or self-care (01) ==
PROVIDERS: Emergency Provider Emergency Medicine; PCP Family Medicine
DX: G47.00 Insomnia, unspecified (principal); R42 Dizziness and giddiness
CPT/HCPCS: 0241U; 36415; 36600; 80053; 81003; 81015; 81025; 82805; 83690; 85025; 87086; 99283

== ENCOUNTER → 2025-04-28 12:51 | Outpatient (ROUT) | payer OTHER, SELFPAY ==
[2025-04-28 20:31] LABS: Urine N gonorrhoeae NOT DETECTED
[2025-04-28 20:37] LABS: Urine Chlamydia NOT DETECTED
== END ==
PROVIDERS: Visit Provider Obstetrics & Gynecology
DX: Z34.91 Encounter for supervision of normal pregnancy, unspecified, first trimester (principal); Z3A.08 8 weeks gestation of pregnancy
CPT/HCPCS: 87491; 87591

== ENCOUNTER → 2025-05-17 11:51 | Outpatient (CLI) | payer OTHER, SELFPAY ==
[2025-05-17 12:50] LABS: Add Manual Diff / Slide Review NO; Hematocrit 32.7 % (36-46); Hemoglobin 11.4 g/dL (12.0-16.0); Lymphocytes Absolute Auto 1600 /uL (1100-4500); Mean Corpuscular HGB Conc 35.0 % (30-36); Mean Corpuscular Hemoglobin 32.5 PG (26-34); Mean Corpuscular Volume 92.7 fL (80-100); Platelet Count 223 X10^3/uL (150-400)
[2025-05-17 13:04] LABS: Natera Collection Specimen Collected
[2025-05-18 15:29] LABS: HIV 1 & 2 Ab/Ag 4th Gen Combo NEGATIVE (NEGATIVE); Hep C Virus Ab w/Reflex Quant NEGATIVE s/c (NEGATIVE); Hepatitis B Surface Antigen NEGATIVE s/c (NEGATIVE)
== END ==
PROVIDERS: PCP Family Medicine; Referring Provider Obstetrics & Gynecology; Visit Provider Obstetrics & Gynecology
DX: Z34.90 Encounter for supervision of normal pregnancy, unspecified, unspecified trimester (principal); Z36.0 Encounter for antenatal screening for chromosomal anomalies
CPT/HCPCS: 36415; 80055; 83021; 86787; 86803; 86850; 86900; 86901; 87086; 87389

== ENCOUNTER → 2025-07-21 10:50 | Outpatient (CLI) | payer OTHER, SELFPAY ==
--- NOTE | 2025-07-21 10:51 | DI.US.S_ITS ---
PROCEDURE: US OB >= 14 WEEKS FETUS INDICATIONS: anatomy scan OUTSIDE/PRIOR DATING DATA: Working MABLE 12/06/2025 TECHNIQUE: Real-time scanning was performed of the fetus, with image documentation and biometric measurements. COMPARISON: None. FINDINGS: General: A single living intrauterine gestation is present. Presentation: Vertex. Placenta: Placental position is posterior , without previa. Amniotic fluid index: 18.7 cm, normal range is 5-24 cm. Single deepest vertical pocket is 5.8 cm. heart rate: 149 beats per minute. Maternal cervical canal: 3.4 cm long. Normal lower limit is 2.5 cm. biometrics: Biparietal diameter: 4.7 cm, 20 weeks and 2 days Head circumference: 17.4 cm 19 weeks and 6 days Abdominal circumference: 16.4 cm, 21 weeks and 3 days Femur length: 3.3 cm, 20 weeks and 3 days Clinically estimated gestational age: 20 weeks and 2 days Composite gestational age from present scan: 20 weeks and 4 days Estimated weight and percentile: 383 g, 78% Anatomic survey: Neuro: Ventricles are non-dilated at less than 10 mm. Cisterna magna is normal at 3-11 mm. Cerebellum is normal in size and morphology. Nuchal skin fold: Normal at less than 6 mm between 14-21 weeks gestational age. Face: Nose and lips, facial profile are normal. Spine: No evidence for spina bifida. Heart: 4-chambered heart is present, with normal ventricular outflow tracts. Diaphragm: Diaphragm is intact. Stomach: Left-sided stomach is present. Kidneys: No hydronephrosis. Normal is less than 5 mm in 2nd trimester, less than 7 mm in 3rd trimester. Cord: 3-vessel cord has orthotopic insertion. Bladder: Normal in size. Extremities: All 4 extremities identified. Maternal uterine fibroid is seen measuring 5.4 x 4.2 cm at the fundus. The placental cord origin is 2 cm from the superior edge. IMPRESSION: Intrauterine gestation in vertex presentation with cardiac motion. Normal ANGELICA. EFW within normal limits at the 78 percentile. Placental cord origin is 2 cm from the superior edge. Otherwise, no significant abnormalities on routine anatomic survey. Dictated by: Jayme Barba M.D. on 07/22/2025 at 9:46 Approved by: Jayme Barba M.D. on 07/22/2025 at 9:50
== END ==
LOC: US 10:50
PROVIDERS: Referring Provider Obstetrics & Gynecology; Visit Provider Obstetrics & Gynecology
DX: O34.12 Maternal care for benign tumor of corpus uteri, second trimester (principal); D25.9 Leiomyoma of uterus, unspecified; Z3A.20 20 weeks gestation of pregnancy
CPT/HCPCS: 76811

== ENCOUNTER → 2025-10-02 08:27 | Outpatient (CLI) | payer OTHER, SELFPAY ==
[2025-10-02 09:44] LABS: Hematocrit 30.1 % (36-46); Hemoglobin 10.3 g/dL (12.0-16.0)
[2025-10-02 10:57] LABS: GTT (PREG) 1 Hour PP 50gm Dose 176 mg/dL (76-139)
== END ==
PROVIDERS: Referring Provider Obstetrics & Gynecology; Visit Provider Obstetrics & Gynecology
DX: Z34.82 Encounter for supervision of other normal pregnancy, second trimester (principal)
CPT/HCPCS: 36415; 82950; 85014; 85018; 86850